=== PATIENT | female | born 1970 | race Caucasian/White ===

== ENCOUNTER 2016-04-12 20:46 | Emergency (ER) | payer OTHER | END 2016-04-12 22:19 | disposition home or self-care (01) | LOC: ER 20:46 | DX: B34.9 Viral infection, unspecified (principal) | CPT/HCPCS: 87804 ==

== ENCOUNTER 2016-04-27 21:02 | Emergency (ER) | payer OTHER ==
[2016-04-27] MEDS ORDERED: ONDANSETRON 4 MG VIAL ONE (23:20)
[2016-04-27] MEDS ORDERED: MORPHINE 4 MG/ML SYR ONE (23:21)
[2016-04-27] MEDS ORDERED: SODIUM CHLORIDE 0.9% 1,000 ML ONE (23:21)
== END 2016-04-28 00:27 | disposition home or self-care (01) ==
LOC: ER 21:02
DX: R30.0 Dysuria (principal); R10.9 Unspecified abdominal pain; F17.210 Nicotine dependence, cigarettes, uncomplicated
CPT/HCPCS: 36415; 74176; 80053; 81003; 83690; 85025; 96361; 96374; 96375; 99284; J2270; J2405

== ENCOUNTER 2016-05-03 22:09 | Emergency (ER) | payer OTHER ==
[2016-05-03] MEDS ORDERED: KETOROLAC 60 MG/2 ML VIAL IM ONE (23:46)
== END 2016-05-04 00:31 | disposition home or self-care (01) ==
LOC: ER 22:09
DX: N23 Unspecified renal colic (principal); F17.210 Nicotine dependence, cigarettes, uncomplicated
CPT/HCPCS: 36415; 80053; 81003; 83690; 85025; 96372